=== PATIENT | male | born 1930 | race Caucasian/White ===

== ENCOUNTER → 2018-06-08 07:07 | Day surgery (SDC) | payer MEDICARE, OTHER ==
[~2018-06-08 07:07] MED LIST: Flumazenil* 0.1 MG/ML 5 ML MDV ONE; Heparin 2 UNITS/ML IVPREMIX* 3,000 UNIT/1,500 ML BAG IV ONE; Heparin(*) 1000 UNIT/ML 10 ML VIAL CATH LAB IV ONE; Iodixanol 320 (CONTRAST) 100 ML SDV ONE; LORazepam TAB(*) 1 MG ONE; Lidocaine 1% INJ* 10 MG/ML 30 ML SDV ONE; Midazolam* 1 MG/ML 5 ML VIAL (5 MG) ONE; VERAPAMIL 2.5 MG/ML 2 ML VIAL ** 5 mg/2 ml ONE; diPHENhydraMINE IV* 50 MG/ML 1 ml VIAL (BENADRYL) ONE; nitroGLYCERIN DRIP* 25,000 MCG/250 ML BTL ONE
[2018-06-08 08:44] LABS: ABS Basophils 0 10^3/ul (0-0.2); ABS Eosinophils 0.3 10^3/ul (0-0.6); ABS Lymphocytes 1.9 10^3/ul (1.0-4.8); ABS Monocytes 0.5 10^3/ul (0-0.8); ABS Neutrophils 4.4 10^3/ul (1.5-7.7); ABS Nucleated RBC 0 10^3/ul; Eosinophil % 3.9 %; Hematocrit 44 % (42-52); Hemoglobin 14.8 g/dl (14.0-18.0); Lymphocyte % 26.5 %; Mean Corpuscular HGB Conc 34 g/dl (31-36); Mean Corpuscular Hemoglobin 30 pg (27-31); Mean Corpuscular Volume 90 fL (80-94); Mean Platelet Volume 8.6 fL (7.4-10.4); Nucleated Red Blood Cells % 0.1; Platelet Count 184 10^3/ul (150-450); Red Blood Count 4.89 10^6/ul (4.00-5.40); Red Cell Distribution Width 13 % (10.5-15); White Blood Count 7.2 10^3/ul (3.5-10.8)
[2018-06-08 08:49] LABS: Activated Partial Thrombo Time 31.4 seconds (26.0-36.3); INR 0.98 (0.77-1.02)
[2018-06-08 08:57] LABS: Potassium 3.8 mmol/L (3.5-5.0)
[2018-06-08 08:58] LABS: BUN/Creatinine Ratio 16.7 (8-20); Calcium 9.1 mg/dL (8.6-10.3); EGFR African American 56.3 (>60); EGFR Non-African American 46.5 (>60)
[2018-06-08 15:54] VITALS: BP 131/68
--- NOTE | 2018-06-08 16:16 | PN ---
Progress Note - Progress Note Date of Service: 06/08/18 SOAP: Subjective: No pain complaints. No nausea. No lightheadedness. Objective: Selected Entries 06/08/18 06/08/18 15:18 15:22 Heart Rate 71 Respiratory 21 Rate Blood Pressure 131/68 (mmHg) Blood Pressure 84 Mean O2 Sat by Pulse 96 Oximetry NAD, AAO x 3 Sitting up in chair reading Right CF arteriotomy site is soft and nontender Trace amount of blood on gauze Skin over right PAEDIATRIC PHYSIOTHERAPIST is soft, nontender Dressing is dry 2+ right LIFE CARE PLANNER 1+ right pop, DPA and PAEDIATRIC PHYSIOTHERAPIST Neuromuscular function of RLE is grossly intact Patient walking Assessment: 87 YOM s/p right leg arteriography, revascularization and angioplasty of occluded distal right SFA from antegrade right common femoral arteriotomy. Access was obtained also at the right PAEDIATRIC PHYSIOTHERAPIST in the retrograde direction. Plan: 1. D/C to home. 2. Start Plavix 75 mg PO and ASA 81 mg PO daily. 3. Routine IR follow up will include clinic RN call 06/11/18. 4. OMAR and office visit in ~1 month per protocol. 5. After 24 hours of rest, patient encouraged to resume rigorous walking and exercise routine to support vessel patency. 6. Patient advised to hold Metformin until 06/10/18 1200 hours.
== END | disposition home or self-care (01) ==
LOC: CHICATH 07:07
PROVIDERS: ATTEND Radiology Diagnostic Radiology
DX: I70.211 Atherosclerosis of native arteries of extremities with intermittent claudication, right leg (principal); I70.235 Atherosclerosis of native arteries of right leg with ulceration of other part of foot; E11.9 Type 2 diabetes mellitus without complications; Z79.84 Long term (current) use of oral hypoglycemic drugs; M54.16 Radiculopathy, lumbar region; R26.89 Other abnormalities of gait and mobility; D89.0 Polyclonal hypergammaglobulinemia; I67.9 Cerebrovascular disease, unspecified
CPT/HCPCS: 36415; 76937; 80048; 85025; 85347; 85610; 85730; 99156; 99157; A9270-GY; C1725; C1769; C1887; C1894; J1200; J1644; J2250

== ENCOUNTER 2019-01-01 09:07 | Emergency (ER) | payer MEDICARE, OTHER ==
--- OUTSIDE RECORDS SUMMARY | 2019-01-01 09:28 | XMS REPORT | Continuity of Care Document ---
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 Onset: 09/22/2017 Cerebrovascular disease Pedro Rojas M.D. Onset: 12/28/2017 Polyclonal hypergammaglobulinemia Pedro Rojas M.D. Onset: 02/15/2018 Lumbar radiculopathy Pedro Rojas M.D. 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 Onset: leg with ulceration of other part of foot Intermittent claudication due to Stefan Rodrigues M.D. Onset: 05/16/2018 atherosclerosis of ho-chunk artery of limb Aneurysm of iliac artery Pedro Rojas M.D. Onset: 05/24/2018 Peripheral vascular disease Pedro Rojas M.D. Onset: 08/31/2018 Neoplastic disease Pedro Rojas M.D. Onset: 08/31/2018 Social History Type Date Description Comments Sex Unknown Tobacco Use Start: Unknown Never Smoked Cigarettes ETOH Use Rarely consumes alcohol Tobacco Use Start: Unknown Patient has never smoked Recreational Drug Use Denies Drug Use Smoking Status Reviewed: 12/25/18 Patient has never smoked Exercise Type/Frequency Exercises regularly walking daily or rowing machine. Allergies, Adverse Reactions, Alerts Active Allergies Reaction Severity Comments Date Fentanyl Unconsciousness 05/30/2013 Medications Active Medications SIG Qnty Indications Ordering Provider Date Sinemet take 1/2 pill 45tabs R26.81 Javedaniya Espino, 08/31/2018 25-100mg Tablets at breakfast, N.P. lunch and dinner, 30 min prior to meals Glipizide ER 1 by mouth bid 90tabs Unknown 5mg Tablets ER 24HR Vitamin B-12 1 by mouth Unknown 1000mcg every day Tablets Metformin HCL 2 by mouth Unknown 500mg twice a day Tablets Plavix 1 by mouth Unknown 75mg Tablets every day Aspirin 81 1 by mouth Unknown 81mg Tablets every day DR Atorvastatin Calcium 1 by mouth Unknown 20mg every day Tablets Preservision Areds 2 1 by mouth two Unknown times per day Areds 2 Capsules Immunizations Description No Information Available Vital Signs Date Vital Result Comment 12/25/2018 10:06am Height 70 inches 5'10" Weight 158.00 lb w/ shoes Heart Rate 70 /min BP Systolic Sitting 137 mmHg BP Diastolic Sitting 73 mmHg BMI (Body Mass Index) 22.7 kg/m2 10/30/2018 9:01am Height 70 inches 5'10" Weight 164.00 lb with shoes Heart Rate 60 /min BP Systolic Sitting 126 mmHg Lue BP Diastolic Sitting 80 mmHg Lue BP Systolic Standing 126 mmHg Lue BP Diastolic Standing 84 mmHg Lue BMI (Body Mass Index) 23.5 kg/m2 Results Test Date Facility Test Result H/L Range Note Laboratory test 10/30/2018 [facility] B-Type Natriuretic 85 pg/ mL <=[address] [place] [address] [phone] Troponin-I (TnI) 0.01 ng/mL <0.04 1 Basic Metabolic 08/31/2018 [facility] Sodium 134 mmol/L Low 135-[address] [place] [address] [phone] Potassium 4.5 mmol/L Normal 3.5-5.0 Chloride 102 mmol/L Normal 101-111 Co2 Carbon Dioxide 25 mmol/L Normal 22-32 Anion Gap 7 mmol/L Normal 2-11 Glucose 344 mg/dL High 70-100 Blood Urea Nitrogen 26 mg/dL High 6-24 Creatinine 1.49 mg/dL High 0.67-1.17 BUN/Creatinine Ratio 17.4 Normal 8-20 Calcium 9.8 mg/dL Normal 8.6-10.3 Egfr Non- 44.7 >60 Egfr 54.1 >60 2 1 Troponin-I testing on Plasma Separator Tubes (PST) has a known false positive rate of 0.20-0.40%. All positive troponins reflex immediately to secondary confirmatory testing. Using the [employer] 800 Access Immunoassay systems, the 99th percentile upper reference limit was demonstrated to be < 0.03 ng/mL. 2 Because ethnic data is not always readily available, this report includes an eGFR for both -Americans and non- Americans. The National Kidney Disease Education Program (NKDEP) does not endorse the use of the MDRD equation for patients that are not between the ages of 18 and 70, are , have extremes of body size, muscle mass, or nutritional status, or are non- or non-. According to the National Kidney Foundation, irrespective of diagnosis, the stage of the disease is based on the level of kidney function: Stage Description GFR(mL/min/1.73 m(2)) 1 Kidney damage with normal or decreased GFR 90 2 Kidney damage with mild decrease in GFR 60-89 3 Moderate decrease in GFR 30-59 4 Severe decrease in GFR 15-29 5 Kidney failure <15 (or dialysis) Procedures Date Code Description Status 11/06/2018 29480 ECHO Transthoracic, Real-Time 2D With Doppler And Color Completed Flow 11/06/2018 42564 ECHO Transthoracic, Real-Time 2D With Doppler And Color Completed Flow 10/30/2018 10900 EKG Tracing & Interpretation Completed Medical Devices Description No Information Available Encounters Type Date Location Provider Dx Diagnosis Office Visit 10/30/2018 [facility] Jarred Montana, R06.02 Shortness of 9:00a Of Medical Bill Processor DO FACC breath I73.9 Peripheral vascular disease, unspecified E11.51 Type 2 diabetes w diabetic peripheral angiopath w/o gangrene R94.31 Abnormal electrocardiogram [ECG] [EKG] Office Visit 10/08/2018 [facility] D49.7 Neoplm of unsp 1:00p Services [facility] Crhistina Dave MD behav of endo glands and oth prt nervous sys Office Visit 09/24/2018 [facility] Javedmanolo Espino, I73.9 Peripheral 12:00p Services Of Christina NElmer vascular disease, unspecified R26.81 Unsteadiness on feet D49.2 Neoplasm of unsp behavior of bone, soft tissue, and skin Office Visit 08/31/2018 [facility] Pedro Rojas, I73.9 Peripheral 1:15p Neurologic MBeatriz vascular disease, [facility] unspecified R26.81 Unsteadiness on feet D49.2 Neoplasm of unsp behavior of bone, soft tissue, and skin G95.9 Disease of spinal cord, unspecified Office Visit 07/11/2018 [facility] Stefan Fisher I70.211 Athscl ho-chunk 10:00a [facility] Rodrigues M.D. arteries of extrm w intrmt judah, right leg Office Visit 07/03/2018 [facility] R26.81 Unsteadiness on 3:30p Services [facility] Dave MD feet I73.9 Peripheral vascular disease, unspecified D49.2 Neoplasm of unsp behavior of bone, soft tissue, and skin Assessments Date Code Description Provider 12/25/2018 E11.65 Type 2 diabetes mellitus with Michael Pathak MD hyperglycemia 11/06/2018 R06.02 Shortness of breath Jarred Montana DO FAC 11/06/2018 R06.02 Shortness of breath Ica ECHO Schedule 10/30/2018 R06.02 Shortness of breath Jarred Montana DO FAC 10/30/2018 I73.9 Peripheral vascular disease, unspecified Jarred Montana DO FAC 10/30/2018 E11.51 Type 2 diabetes mellitus with diabetic Jarred Montana, DO [facility] peripheral angiopathy without gangrene 10/30/2018 R94.31 Abnormal electrocardiogram [ECG] [EKG] Jarred Montana DO FAC 10/08/2018 D49.7 Neoplasm of unspecified behavior of Daniele Dave MD endocrine glands and other parts of nervous system 09/24/2018 I73.9 Peripheral vascular disease, unspecified Javed Espino, N.P. 09/24/2018 R26.81 Unsteadiness on feet Javed Espino, N.P. 09/24/2018 D49.2 Neoplasm of unspecified behavior of bone, Javed Espino, N.P. soft tissue, and s 08/31/2018 I73.9 Peripheral vascular disease, unspecified Pedro Rojas M.D. 08/31/2018 R26.81 Unsteadiness on feet Pedro Rojas M.D. 08/31/2018 D49.2 Neoplasm of unspecified behavior of bone, Pedro Rojas M.D. soft tissue, and s 08/31/2018 G95.9 Disease of spinal cord, unspecified Pedro Rojas M.D. 07/11/2018 I70.211 Atherosclerosis of ho-[place] arteries of Stefan Rodrigues M.D. extremities with inter 07/03/2018 R26.81 Unsteadiness on feet Daniele Dave MD 07/03/2018 I73.9 Peripheral vascular disease, unspecified Daniele Dave MD 07/03/2018 D49.2 Neoplasm of unspecified behavior of bone, Daniele Dave MD soft tissue, and s Plan of Treatment Future Appointment(s):01/09/2019 11:00 am - Daniele Dave MD at [facility]12/25/2018 - Michael Pathak MDE11.65 Type 2 diabetes mellitus with hyperglycemiaInstructions:1. Continue current medications. 2. Your A1c goal is less than 8%. Functional Status Description No Information Available Mental Status Description No Information Available Referrals Description No Information Available
--- NOTE | 2019-01-01 09:46 | ED ---
Neurological HPI - HPI Summary HPI Summary: This pt is an 88 y/o male, accompanied by work admin assistant, presenting to [facility] c/ o general weakness worsening over the past few months, specifically over the past 2 weeks. Pt reports he has been having more and more difficulty walking in the mornings particularly and as the day progresses it clears out. This morning pt notes he went to drop off a car for repair at [employer] and walked 200 yards but "hardly made it." He notes he was experiencing general weakness in his whole body and was walking 1/4 mile at a time. Denies chest pain, SOB, difficulty breathing, headache, changes in vision or hearing. He does note some dizziness associated with weakness. Denies nausea, vomiting, abd pain, swelling in legs. Pt states he is concerned for Parkinson's disease from either his "head or pinched nerve in the lumbar." Pt has followed up with Dr. Dave, neurosurgeon, and another neurosurgeon [place] [facility] [place] He states he has seen Dr. Rojas, neurologist, in the past and the last time he saw him was "some time ago." He notes he went rowing for 4 miles two days ago but had difficulty getting in and out of the boat. PMHx includes macular degeneration. - History of Current Complaint Chief Complaint: EDWeakness Stated Complaint: WEAK Time Seen by Provider: 01/01/19 09:30 Hx Obtained From: Patient Onset/Duration: Started weeks ago, Still Present Current Severity: None Neurological Deficit Location: Generalized Pain Intensity: 0 - denies any pain Pain Scale Used: 0-10 Numeric Character: Weak - generalized Aggravating: Nothing Alleviating: Nothing Associated Signs and Symptoms: Positive: Weakness - generalized, Dizziness. Negative: Visual Changes, Headache, Nausea/Vomiting, Fever, Chest Pain, Shortness of Breath - Additional Pertinent History Primary Care Physician: [id number] - Allergy/Home Medications Allergies/Adverse Reactions: Allergies Allergy/AdvReac Type Severity Reaction Status Date / Time fentanyl Allergy Unknown Verified 01/01/19 09:42 Reaction Details Home Medications: Home Medications Atorvastatin* [Lipitor*] 20 mg PO DAILY 01/01/19 [History Confirmed 01/01/19] Carbidopa/Levodop 25/100 MG(*) [Sinemet 25/100 TAB(*)] 0.5 tab PO TID 01/01/19 [ History Confirmed 01/01/19] PMH/Surg Hx/FS Hx/Imm Hx Endocrine/Hematology History: Reports: Hx Diabetes Denies: Hx Anemia Cardiovascular History: Denies: Hx Hypertension, Hx Pacemaker/ICD, Hx Peripheral Vascular Disease Respiratory History: Denies: Hx Asthma GI History: Denies: Hx Jaundice History: Denies: Hx Dialysis, Hx Renal Disease Musculoskeletal History: Reports: Hx Orthopedic Injury Denies: Hx Osteoporosis Sensory History: Reports: Hx Contacts or Glasses Denies: Hx Hearing Aid Opthamlomology History: Reports: Hx Contacts or Glasses Neurological History: Denies: Hx Headaches Psychiatric History: Denies: Hx Anxiety, Hx Depression, Hx Panic Disorder - Surgical History Surgery Procedure, Year, and Place: LEFT KNEE REPLACEMENT. PROSTATE. RIGHT SHOULDER. CATARACTS. Lt SHOULDER Hx Anesthesia Reactions: No Infectious Disease History: No Infectious Disease History: Reports: Hx of Known/Suspected MRSA Denies: Hx Hepatitis, Traveled Outside the [place] in Last 30 Days - Family History Known Family History: Positive: Other - CVA in mother, Alzheimer's in father - Social History Alcohol Use: Occasionally Substance Use Type: Reports: None Smoking Status (MU): Never Smoked Tobacco Review of Systems Negative: Fever Negative: Other - NEGATIVE: visual changes Negative: Other - NEGATIVE: change in hearing Negative: Chest Pain Negative: Shortness Of Breath Negative: Abdominal Pain, Vomiting, Nausea Negative: Edema - in legs Neurological: Other - POSITIVE: dizziness Positive: Weakness - generalized. Negative: Headache All Other Systems Reviewed And Are Negative: Yes Physical Exam - Summary Physical Exam Summary: Constitutional: Well-developed, Well-nourished, Alert. (-) Distressed Skin: Warm, Dry HENT: Normocephalic; Atraumatic Eyes: Conjunctiva normal, no pallor. Neck: Musculoskeletal ROM normal neck. (-) JVD, (-) Stridor, (-) Tracheal deviation Cardio: Rhythm regular, rate normal, Heart sounds normal; Intact distal pulses; The pedal pulses are 2+ and symmetric. Radial pulses are 2+ and symmetric. Pulses are palpable, warm and normal distally. Pulmonary/Chest wall: Effort normal. (-) Respiratory distress, (-) Wheezes, (-) Rales Abd: Soft, (-) tenderness, (-) Distension, (-) Guarding, (-) Rebound Musculoskeletal: (-) Edema Neuro: Alert, Oriented x3 Psych: Mood and affect Normal Triage Information Reviewed: Yes Vital Signs On Initial Exam: Initial Vitals Temp Pulse Resp BP Pulse Ox 97.4 F 77 18 131/72 96 01/01/19 09:09 01/01/19 09:09 01/01/19 09:09 01/01/19 09:09 01/01/19 09:09 Vital Signs Reviewed: Yes Procedures - Sedation Patient Received Moderate/Deep Sedation with Procedure: No Diagnostics - Vital Signs Vital Signs Temp Pulse Resp BP Pulse Ox 01/01/19 09:09 97.4 F 77 18 131/72 96 - Laboratory Result Diagrams: 01/01/19 10:17 01/01/19 10:17 Lab Statement: Any lab studies that have been ordered have been reviewed, and results considered in the medical decision making process. - Radiology chest XR Radiology Interpretation Completed By: Radiologist Summary of Radiographic Findings: IMPRESSION: Hyperinflation, consistent with COPD. No active cardiopulmonary disease. Dr. Bowman has reviewed this report. - EKG 10:46 Cardiac Rate: NL - at 68 bpm EKG Rhythm: Sinus Rhythm Summary of EKG Findings: An EKG at 10:46 reveals sinus rhythma at 68 bpm, no STEMI. Incomplete LBBB is old. Inferior Q-waves is old. Nonspecific T waves abnormal are old. Course/Dx - Course Assessment/Plan: Pt is an 88 y/o male presenting to [facility] c/o general weakness worsening over the past few months, specifically over the past 2 weeks. Pt reports he has been having more and more difficulty walking in the mornings particularly and as the day progresses it clears out. This morning he walked 200 yards but "hardly made it," experiencing general weakness in his whole body and walking 1/4 mile at a time. Denies chest pain, SOB, difficulty breathing, headache, changes in vision or hearing. Patient was seen in June and had occluded right SFA that was revascularized and discharged him a few days later. Follow up after his discharge in July 2018 pt went back to their office and had normal OMAR and normal arterial flow, a month after vascularization was intact. Right SFA and popliteal artery patent in the follow up. He has had cervical and thoracic MRIs done in September 2018 and both showed no acute findings. 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 Stable in size compared to previous exam. Neural foraminal narrowing along the lower spine without significant central canal stenosis. MRI of lumbar spine was done to evaluate the tumor and it is stable and mass is unchanged. Chest XR shows hyperinflation , consistent with COPD. No active cardiopulmonary disease. UA is not consistent with UTI, likely contaminated. Pt without dysuria. Will add a urine culture and pt's PCP will follow up. Pt has normal vital signs. He is not anemic. Creatinine is 1.24, better than the 1.4 he lives with. Pt will be discharged home with follow up from his PCP. - Diagnoses Provider Diagnoses: Fatigue Discharge ED - Sign-Out/Discharge Documenting (check all that apply): Patient Departure - Discharge home Patient Received Moderate/Deep Sedation with Procedure: No - Discharge Plan Condition: Stable Disposition: HOME Patient Education Materials: Fatigue (ED) Referrals: Jas Oliveira MD [Primary Care Provider] - - Billing Disposition and Condition Condition: STABLE Disposition: Home - Attestation Statements Document Initiated by Jennifer: Yes Documenting Scribe: Carli Gerard Provider For Whom Jennifer is Documenting (Include Credential): Galileo Bowman MD Scribe Attestation: Carli Dalton scribed for Galileo Bowman MD on 01/14/19 at 0719. Scribe Documentation Reviewed: Yes Provider Attestation: The documentation as recorded by the Carli marroquin accurately reflects the service I personally performed and the decisions made by me, Galileo Bowman MD Status of Scribe Document: Viewed
[2019-01-01 10:23] LABS: Urine Appearance Cloudy; Urine Bacteria Absent (Absent); Urine Bilirubin Negative (Negative); Urine Blood Negative (Negative); Urine Color Yellow; Urine Glucose Negative (Negative); Urine Ketones Trace (Negative); Urine Nitrite Negative (Negative); Urine Protein Negative (Negative); Urine Red Blood Cell Absent (Absent); Urine Squamous Epithelial Cell Present (Absent); Urine Urobilinogen Negative (Negative); Urine White Blood Cell 1+(6-10/hpf) (Absent)
[2019-01-01 10:27] LABS: ABS Eosinophils 0.1 10^3/ul (0-0.6); ABS Lymphocytes 1.4 10^3/ul (1.0-4.8); ABS Monocytes 0.5 10^3/ul (0-0.8); ABS Neutrophils 5.3 10^3/ul (1.5-7.7); Eosinophil % 1.3 %; Hematocrit 43 % (42-52); Hemoglobin 14.7 g/dL (14.0-18.0); Mean Corpuscular HGB Conc 35 g/dL (31-36); Mean Corpuscular Hemoglobin 31 pg (27-31); Mean Corpuscular Volume 91 fL (80-94); Mean Platelet Volume 8.3 fL (7.4-10.4); Platelet Count 173 10^3/uL (150-450); Red Blood Count 4.69 10^6 /uL (4.18-5.48); Red Cell Distribution Width 14 % (10-15); White Blood Count 7.3 10^3/uL (3.5-10.8)
[2019-01-01 10:54] LABS: Albumin 3.5 g/dL (3.2-5.2); Albumin/Globulin Ratio 1.1 (1-3); Calcium 9.4 mg/dL (8.6-10.3); EGFR African American 66.7 (>60); EGFR Non-African American 55.1 (>60); Globulin 3.2 g/dL (2-4); Indirect Bilirubin 0.5 mg/dL (0.3-1.0); Magnesium 1.7 mg/dL (1.9-2.7); Potassium 4.2 mmol/L (3.5-5.0); Total Bilirubin 0.6 mg/dL (0.2-1.0); Total Protein 6.7 g/dL (6.4-8.9)
[2019-01-01 10:56] LABS: Troponin I 0.01 ng/mL (<0.04)
[2019-01-01 11:40] VITALS: BP 125/72
== END 2019-01-01 11:30 | disposition home or self-care (01) ==
LOC: ED 09:07
DX: R53.83 Other fatigue (principal); R53.1 Weakness; R42 Dizziness and giddiness; I44.7 Left bundle-branch block, unspecified; E11.9 Type 2 diabetes mellitus without complications; Z88.5 Allergy status to narcotic agent; Z96.652 Presence of left artificial knee joint
CPT/HCPCS: 36415; 71046; 80048; 80076; 81003; 81015; 83690; 83735; 84484; 85025; 87086; 93005; 99283